=== PATIENT | female | born 1945 | race Caucasian/White ===

== ENCOUNTER → 2017-01-22 | Outpatient (CLI) | payer OTHER ==
--- NOTE | 2017-01-22 15:00 | DIAGNOSTIC IMAGING REPORT ---
RIGHT BREAST LYMPHOSCINTIGRAPHY INJECTION CLINICAL HISTORY: BREAST CANCER COMPARISON STUDY: No previous studies for comparison. FINDINGS: A timeout was performed. 5 intradermal perilesional injections were performed utilizing a total dose of 0.52 mCi of technetium 99m Lymphoseek.No imaging was performed. The patient will be localized intraoperatively. IMPRESSION: A right breast lymphoscintigraphy injection was performed. Electronically signed by: Alex Santacruz M.D. 01/22/2017 2:58 PM Dictated Date/Time: 01/22/2017 2:56 PM
== END | disposition home or self-care (01) ==
LOC: C.NUCL 13:31
PROVIDERS: ATTEND Surgery
DX: C50.911 Malignant neoplasm of unspecified site of right female breast (principal)